=== PATIENT | female | born 1940 | race Two or more races ===

== ENCOUNTER 2021-01-16 23:29 | Emergency (ER) | payer OTHER ==
[~2021-01-16] VITALS: Ht 149.9 cm; Wt 74.8 kg
== END 2021-01-17 05:00 | disposition home or self-care (01) ==
LOC: ER 23:29
DX: R42 Dizziness and giddiness (principal); Z03.818 Encounter for observation for suspected exposure to other biological agents ruled out

== ENCOUNTER 2024-05-09 04:54 | Emergency (ER) | payer OTHER ==
[~2024-05-09] VITALS: Ht 154.9 cm; Wt 72.6 kg
[2024-05-09] MEDS ORDERED: RINGERS SOLUTION,LACTATED 1,000 ML IV STA (05:28)
[2024-05-09] MEDS ORDERED: PROMETHAZINE HCL 50 MG/ML AMPUL IM STA (05:29)
[2024-05-09] MEDS ORDERED: MEPERIDINE HCL/PF 50 MG/ML VIAL IM STA (05:29)
[2024-05-09] MEDS ORDERED: HYOSCYAMINE SULFATE 0.125 MG TAB.SUBL SL STA (05:30)
[2024-05-09] MEDS ORDERED: PROMETHAZINE HCL 50 MG/ML AMPUL IM ONE (05:36)
[2024-05-09] MEDS ORDERED: HYOSCYAMINE SULFATE 0.125 MG TAB.SUBL ONE (05:37)
[2024-05-09] MEDS ORDERED: BARIUM SULFATE 450 ML ORAL.SUSP PO ONE (05:44)
[2024-05-09 06:25] LABS: HEMATOCRIT 37.1 % (36.0-45.00); HEMOGLOBIN 12.4 g/dL (12.0-15.00); MEAN CORPUSCULAR HEMOGLOBIN 30.8 pg (27.00-32.0); MEAN CORPUSCULAR HGB CONC 33.5 g/dl (32.0-36.0); PLATELET COUNT 285 K/uL (150-450); RED BLOOD COUNT 4.04 M/uL (4.00-6.00); RED CELL DISTRIBUTION WIDTH 13.8 % (11.5-14.5)
[2024-05-09 06:43] LABS: INR 1.04; PARTIAL THROMBOPLASTIN TIME 21.4 SECONDS (22.0-34.0); PROTHROMBIN TIME 10.9 SECONDS (9.0-11.5)
[2024-05-09 06:50] LABS: ALBUMIN 3.4 gm/dL (3.4-5.0); BILIRUBIN TOTAL 1.38 mg/dL (0.3-1.2); CALCIUM 9.1 mg/dL (8.5-10.1); CREATININE SERUM 1.11 mg/dL (0.55-1.02); GFR 46.94; GLOBULINA 4.1 G/DL (2.4-3.5); POTASSIUM 3.89 mEq/L (3.5-5.1); TOTAL PROTEIN 7.5 gm/dL (6.4-8.2)
== END 2024-05-09 14:48 | disposition home or self-care (01) ==
LOC: ER 04:55
DX: K82.1 Hydrops of gallbladder (principal); R10.9 Unspecified abdominal pain
CPT/HCPCS: 36415; 74177; 96372; 99284; J2550; J3490; Q9965